=== PATIENT | male | born 1950 | race Caucasian/White ===

== ENCOUNTER 2016-05-18 19:47 | Emergency (ER) | payer OTHER ==
[~2016-05-18] VITALS: Ht 180.3 cm; Wt 106.8 kg
[2016-05-18 20:10] VITALS: BP 157/82; PULSE 101; RESP 18; O2SAT 97
[2016-05-18 21:17] LABS: BASOPHILS % (AUTO) 0.3 % (0-3); EOSINOPHILS % (AUTO) 0.3 % (0-5); MONOCYTES % (AUTO) 8.6 % (4-12); Mean Corpuscular Hemoglobin 26.8 pg (27.0-35.0); Mean Corpuscular Volume 77.7 fL (81-100); NEUTROPHILS % (AUTO) 80.2 % (40-74); Platelet Count 121 bil/L (150-400)
--- NOTE | 2016-05-18 22:43 | ED.REPORT ---
HPI-Abd Pain M 40 and Over Date of Service May 18, 2016 ED Provider: Alen Bedoya MD Pt is a 66 y.o. male who presents to the ED from c/o diarrhea onset 2 days ago. Pt reports associated fever, clear productive cough, weakness, sinus headache, congestion, myalgias, frequent urination, and increased urgency with urination. He denies SOB, chest pain, abdominal pain, back pain, nausea, and vomiting. He denies recent abx use. Nursing Notes Stated Complaint: POSS BLADDER INFECTION Chief Complaint: Male Abdominal Pain Nursing Notes Reviewed: Yes Allergies: Coded Allergies: No Known Allergies (Unverified , 05/18/16) Scheduled Amoxicillin/Clav K 875-125 mg (Augmentin 875-125 mg) 1 Each Tablet 1 TABLET PO BID General Time Seen by MD: 22:25 Chief Complaint Diarrhea mild Hx Obtained From: Patient Arrived By: Walk-in Sudden in Onset?: Yes Onset Occurred: 3 days ago Symptom Duration: Since onset Similar Sx Previous: No Past Medical History Past Medical History None reported Past Surgical History None reported Social History Alcohol Use: Denies alcohol use Other Social History: Ambulatory Status Independent Review of Systems Constitutional: Reports: Fever, Weakness - generalized Respiratory: Reports: Prod cough, clear, Denies: Shortness of breath Cardiovascular: Denies: Chest pain GI: Reports: Diarrhea, Denies: Abdominal pain, Nausea, Vomiting Male: Reports Urinary frequency, Reports Urinary urgency Musculoskeletal: Reports: Myalgia, Denies: Back pain Complete sys rev & neg: except as marked. Ears / Nose / Throat: Reports: Nasal congestion, Sinus problem Neurologic: Reports: Headache Physical Exam Initial Vital Signs Vital Signs (First) Date Time Temp Pulse Resp B/P Pulse Ox O2 Delivery O2 Flow Rate FiO2 05/18/16 20:10 38.5 101 18 157/82 97 Room Air Initial VS: Reviewed Head / Eyes: Atraumatic, Normocephalic Extremities: Vascular intact, Neuro intact Skin: Warm, Dry, No cyanosis Neurologic: Alert, Oriented, Nonfocal Psychiatric: Mood/affect normal, Behavior normal, Normal thought content General/Constitutional: Awake, Alert, No acute distress, Well appearing, Well developed, Well hydrated, Well nourished, Not toxic appearing Respiratory / Chest: Atraumatic, Breath sounds NL, Breath sounds = bilat, No respiratory distress, No rales, No rhonchi, No wheezing, No retractions, No stridor Cardiovascular: Regular rhythm, Heart sounds NL, No gallop, No murmurs, No rubs , Cap refill not delayed, Peripheral circulation NL Heart Rate / Rhythm: Positive: Tachycardia Abdomen: Atraumatic, Soft, Non-tender, No guarding, No rebound, No distention Back: Atraumatic ENT: Atraumatic Sinus: Positive: Tender frontal L, Tender frontal R Interpretation & Diagnostics Lab Results Interpretation Result Diagram: 05/18/16210405/18/162104 Test 05/18/16 21:05 05/18/16 21:08 05/18/16 22:45 White Blood Count 7.1th/mm3 (3.8-10.1) Red Blood Count 5.93mil/mm3 (4.40-5.80) Hemoglobin 15.9g/dL (13.8-17.2) Hematocrit 46.1% (41.0-50.0) Mean Corpuscular Volume 77.7fL (81-100) Mean Corpuscular Hemoglobin 26.8pg (27.0-35.0) Mean Corpuscular Hemoglobin Concent 34.5% (32.0-37.0) Red Cell Distribution Width 13.8% (12.3-15.4) Platelet Count 121bil/L (150-400) Neutrophils (%) (Auto) 80.2% (40-74) Lymphocytes (%) (Auto) 10.2% (14-46) Monocytes (%) (Auto) 8.6% (4-12) Eosinophils (%) (Auto) 0.3% (0-5) Basophils (%) (Auto) 0.3% (0-3) Sodium Level 132mEq/L (134-144) Potassium Level 4.1mEq/L (3.5-5.2) Chloride Level 93mEq/L (97-108) Carbon Dioxide Level 22mmol/L (18-29) Blood Urea Nitrogen 11mg/dL (8-27) Creatinine 0.95mg/dL (0.76-1.27) Estimat Glomerular Filtration Rate 85mL/min (>59) Glucose Level 126mg/dL (60-99) Calcium Level 8.8mg/dL (8.5-10.1) Magnesium Level 2.0mg/dL (1.6-2.6) Total Bilirubin 1.1mg/dL (0.0-1.2) Aspartate Amino Transf (AST/SGOT) 114U/L (0-50) Alanine Aminotransferase (ALT/SGPT) 131U/L (0-44) Alkaline Phosphatase 63U/L (25-160) Total Protein 7.4g/dL (6.4-8.4) Albumin 4.3g/dL (3.4-5.0) Lipase 160U/L (13-60) Lactic Acid Level 1.4mmol/L (0.4-2.0) Hold Horan Top Tube Received (Received) Urine Color Dark yellow (YELLOW) Urine Appearance Clear (CLEAR,HAZY) Urine pH 6.0 (5.0-8.0) Urine Specific [place] 1.030 (1.003-1.035) Urine Protein 100mg/dL (NEG,TRACE) Urine Glucose (UA) Negativemg/dL (NEGATIVE) Urine Ketones >80mg/dL (NEGATIVE) Urine Occult Blood Moderate (NEGATIVE) Urine Nitrite Negative (NEGATIVE) Urine Bilirubin Negative (NEGATIVE) Urine Urobilinogen 1.0mg/dL (NORMAL) Urine Leukocyte Esterase Negative (NEGATIVE) Urine RBC 0-2/hpf (0-2) Urine WBC 0-5/hpf (0-5) Urine Epithelial Cells Occasional/hpf (NONE-MOD) Urine Crystals None seen (NONE SEEN) Urine Bacteria Few/hpf (NONE-FEW) Urine Hyaline Casts Rare/lpf (NONE) Urine Granular Casts None seen (NONE SEEN) Urine Waxy Casts None seen (NONE SEEN) Urine Red Blood Cell Casts None seen (NONE SEEN) Urine White Blood Cell Casts None seen (NONE SEEN) Urine Mucus Present (None Seen) Urine Trichomonas None seen (NONE SEEN) Urine Yeast None (NONE SEEN) Urinalysis Comment None Urine Culture Reflexed Not indicated X-Ray Chest Interpretation Chest Xray Interpretation: IMPRESSION: No acute cardiopulmonary disease. Interpretation / Wet Read by: Wet read ED physician Re-Eval/Medical Decision Med Decision/Clinical Course 66-year-old male presenting complaining of cough, congestion, sinus pain, diarrhea, myalgias times several days. Patient was seen in urgent care and sent over for evaluation. Febrile. Tachycardic to 100 improved with fluids. Urine negative for infection. Chest x-ray clear on my wet read. White blood cell count is normal. Lactate is negative. Lipase slightly elevated 160 though no abdominal tenderness or nausea or vomiting or other symptoms pancreatitis. Frontal Sinus tenderness on exam. Likely viral syndrome. Patient feels better and will be discharged home. Patient was given prescription for Augmentin that he may fill in several days if sinusitis symptoms do not improve. Source of Hx: Old records Time of Eval: 23:37 Re-Evaluation/Progress Note: Pt rechecked. Pt states that he is now experiencing chills. Discussed lab results and plan for discharge, pt understands and agrees with plan. Counseled Regarding: Diagnosis Discharge & Departure Primary Impression: Sinusitis Additional Impression: Viral illness Disposition: Home Vital Signs - All Vital Signs Date Time Temp Pulse Resp B/P Pulse Ox O2 Delivery O2 Flow Rate FiO2 05/18/16 20:10 38.5 101 18 157/82 97 Room Air )( All Prior VS Reviewed: Yes Condition: Stable Patient Instructions: Sinusitis (ED) Additional Instructions: You imaging and lab results were normal. It appears that you have sinusitis and a viral infection. I recommend you keep hydrated and drink fluids that contain electrolytes. I will prescribe you antibiotics, I recommend you wait several days before filling this prescription because if this is a viral infection it will improve. Follow-up with you primary care provider in several days. Seek care if you experience severe abdominal pain, vomiting, fever, or any new or worsening symptoms. Referrals: Remberto Zamora DO (PCP) Lissethibbernarda Attestation Portions of this note were transcribed by Paulette Guillaume. I, Dr. Bedoya personally performed the history, physical exam and medical decision-making; I reviewed and confirmed the accuracy of the information in the transcribed note. Signed by: Miguelito Arauz, 05/18/16 and 0641. copies to: Remberto Zamora Ben M MD May 18, 2016 22:42 PAULETTE GUILLAUME May 18, 2016 22:58
[2016-05-18] MEDS ORDERED: 0.9% Sodium Chloride 1,000 ML IV ONE (22:53)
[2016-05-18 23:41] LABS: APPEARANCE,URINE CLEAR (CLEAR,HAZY); COLOR,URINE DARK YELLOW (YELLOW); OCCULT BLOOD,URINE MODERATE (NEGATIVE)
[2016-05-18] MEDS ORDERED: AMOX-366 PO (23:44)
[2016-05-19 00:05] VITALS: BP 134/66; PULSE 88; RESP 18; O2SAT 99
--- NOTE | 2016-05-19 10:19 | DRSVH ---
PROCEDURE: X-RAY CHEST ONE VIEW, PORTABLE ([id number]) INDICATIONS: cough TECHNIQUE: One view of the chest was acquired. COMPARISON: None. FINDINGS: Surgical changes and devices: None. Lungs and pleura: No pleural effusions or pneumothorax. Lungs are clear. Mediastinum: Mediastinal contours appear normal. Heart size is normal. Bones and chest wall: No suspicious bony lesions. Overlying soft tissues appear unremarkable. IMPRESSION: No acute cardiopulmonary disease. Dictated by: Gus FORD Interpreted: Ryan Rdz MD on 05/19/2016 at 10:18 Transcribed by: ISABEL on 05/19/2016 at 10:18 Approved by: Roque Rdz M.D. on 05/19/2016 at 16:21
== END 2016-05-19 00:06 | disposition home or self-care (01) ==
LOC: SED 19:47
DX: J32.9 Chronic sinusitis, unspecified (principal); B34.9 Viral infection, unspecified; R35.0 Frequency of micturition
CPT/HCPCS: 36415; 71010; 80053; 81000; 83605; 83690; 83735; 85025; 99284; J7030